=== PATIENT | female | born 1955 | race Caucasian/White ===

== ENCOUNTER 2018-08-17 09:15 | Emergency (ER) | payer MEDICARE ==
--- NOTE | 2018-08-17 09:48 | RADIOLOGY REPORT (SQ) ---
EXAM DESCRIPTION: CT HEAD WITHOUT COMPLETED DATE/TIME: 08/17/2018 9:26 am REASON FOR STUDY: mp stroke alert COMPARISON: None. TECHNIQUE: Axial images acquired through the brain without intravenous contrast. Images reviewed wi th bone, brain and subdural windows. Additional sagittal and coronal reconstructions were generated. Images stored on PACS. All CT scanners at this facility use dose modulation, iterative reconstruction, and/or weight based d osing when appropriate to reduce radiation dose to as low as reasonably achievable (ALARA). [facility]: Dose Right [facility]: CareDose [facility]: Dose Right [facility]: Teradose 4D [facility]: [employer] RADIATION DOSE: CT Rad equipment meets quality standard of care and radiation dose reduction techniq ues were employed. CTDIvol: 53.2 mGy. DLP: 1044 mGy-cm. mGy. LIMITATIONS: None. FINDINGS: VENTRICLES: Normal size and contour. CEREBRUM: Dense right MCA trifurcation, best shown on axial image 16. This is worrisome for acute cl ot. This finding was called to as a critical result, 0930 hours 08/17/2018. Right external capsule and base a ganglia are still discernible. No definite loss of garber-white diff erentiation over the right MCA distribution. No acute hemorrhage, mass effect, or midline shift. CEREBELLUM: No masses. No hemorrhage. No alteration of density. No evidence for acute infarction. EXTRAAXIAL SPACES: No fluid collections. No masses. ORBITS AND GLOBE: No intra- or extraconal masses. Normal contour of globe without masses. CALVARIUM: No fracture. PARANASAL SINUSES: No fluid or mucosal thickening. SOFT TISSUES: No mass or hematoma. OTHER: No other significant finding. IMPRESSION: Dense right middle cerebral artery trifurcation worrisome for acute clot. No acute brai n parenchymal changes. EVIDENCE OF ACUTE STROKE: Dense right middle cerebral artery sign, report called to the emergency mariaelena m attending physician as above COMMENT: Pertinent findings on the imaging study reported as a CRITICAL RESULT to DR GONZALEZ at09:30 on 08/17/2018. Category of Critical Result: CT code stroke, dense middle cerebral artery sign right-side Quality ID # [id number]: Final reports with documentation of one or more dose reduction techniques (e.g., Au tomated exposure control, adjustment of the mA and/or kV according to patient size, use of iterative reconstruction technique) TECHNICAL DOCUMENTATION: JOB ID: [id number] [employer]- All Rights Reserved Reading location - IP/workstation name: [email or web address]
--- NOTE | 2018-08-17 09:57 | ER Document Report ---
ED General - General Stated Complaint: WEAKNESS/NUMBNESS Time Seen by Provider: 08/17/18 09:43 - HPI Notes: Patient is a 62-year-old female who presents to the emergency department for evaluation as a stroke alert. She states she woke this morning, had absolutely no symptoms or problems. She woke, went to the kitchen. She states she stood up from the kitchen table to feed her cat, when she noted that she could not move her left side. She fell to the ground. She denies hitting her head. No loss of consciousness. No neck or back pain. She believes onset of the symptoms was about [phone]. She is never had anything similar to this in the past. Past Medical History - General Information source: Patient - Social History Smoking Status: Never Smoker Family History: COPD - Past Medical History Cardiac Medical History: Reports: Hx Hypercholesterolemia, Hx Hypertension Review of Systems - Review of Systems Constitutional: No symptoms reported EENT: No symptoms reported Cardiovascular: No symptoms reported Respiratory: No symptoms reported Gastrointestinal: No symptoms reported Genitourinary: No symptoms reported Musculoskeletal: No symptoms reported Skin: No symptoms reported Neurological/Psychological: See HPI Physical Exam - Notes Notes: Vital signs reviewed, please refer to chart. Head is normocephalic, atraumatic. Pupils equal round, reactive to light. Neck is supple without meningismus. Heart is regular rate and rhythm. Lungs are clear to auscultation bilaterally. Abdomen is soft, nontender, normoactive bowel sounds throughout. Extremities without cyanosis, clubbing. Posterior calves are nontender. Peripheral pulses are equal. Skin is warm and dry. Patient is awake, alert, oriented x3. Patient initially has dense left-sided facial droop, diminished sensation to sharp on the left face and left upper extremity. Mild dysarthria noted. The remainder of cranial nerves II through XII grossly intact without focal neurological deficits. Strength is plus 5 out of 5 right upper and right lower extremities. Patient has a flaccid paralysis on initial evaluation of the left upper extremity. She has mild motion against gravity on the left lower extremity. Is hyperreflexive on the left. Course - Re-evaluation Re-evalutation: 08/17/18 10:30 Patient presents to the emergency department for evaluation. She was called as a stroke alert. I did evaluate the patient at the ambulance bay door. At that time her NIH was an 8. She was sent directly to CT scan. I was contacted by Dr. Philip, who notified me of a dense right MCA lesion, consistent with clot. I went back into reevaluate the patient and discussed indications/contraindica tions for TPA. At that time physical exam was reperformed. Her NIH was down to 4. She had mild pronator drift, but 3 out of 5 strength on the left upper extremity, and 5 out of 5 on the left lower. Sensation had improved. Her droop was improved, now she only had mild nasolabial fold asymmetry. Given this information, I was not inclined to administer TPA. I spoke with Marlys Melgar, nurse practitioner on for allergy at [facility]. She excepted the patient. Accepting physician will be Maico Boyer. Patient was administered aspirin, will transfer for further evaluation and care. - Laboratory Result Diagrams: 08/17/18 09:48 08/17/18 09:48 Laboratory results interpreted by me: 08/17/18 08/17/18 09:44 09:48 RDW 14.6 H POC Glucose 186 H - Diagnostic Test Radiology reviewed: Reports reviewed Radiology results interpreted by me: 08/17/18 10:32 Chest X-Ray 08/17/18 09:16 IMPRESSION: NO ACUTE RADIOGRAPHIC FINDING IN THE CHEST. Head CT 08/17/18 09:16 IMPRESSION: Dense right middle cerebral artery trifurcation worrisome for acute clot. No acute brain parenchymal changes. EVIDENCE OF ACUTE STROKE: Dense right middle cerebral artery sign, report called to the emergency room attending physician as above - EKG Interpretation by Me Additional EKG results interpreted by me: 08/17/18 10:32 Sinus mechanism with a rate of 87 bpm. Left axis deviation. LAFB. Nonspecific ST changes, but no acute changes concerning for ischemia or infarction. No old studies available for comparison. Discharge - Discharge Clinical Impression: CVA (cerebral vascular accident) Qualifiers: CVA mechanism: thrombosis Precerebral and cerebral artery: middle cerebral artery Laterality of affected vessel: right Qualified Code(s): I63.311 - Cerebra l infarction due to thrombosis of right middle cerebral artery Disposition: [facility] Admitting Provider: Rosalind
--- NOTE | 2018-08-17 10:05 | RADIOLOGY REPORT (SQ) ---
EXAM DESCRIPTION: CHEST SINGLE VIEW COMPLETED DATE/TIME: 08/17/2018 9:27 am REASON FOR STUDY: mp stroke alert COMPARISON: None. EXAM PARAMETERS: NUMBER OF VIEWS: One view. TECHNIQUE: Single frontal radiographic view of the chest acquired. RADIATION DOSE: NA LIMITATIONS: None. FINDINGS: LUNGS AND PLEURA: No opacities, masses or pneumothorax. No pleural effusion. MEDIASTINUM AND HILAR STRUCTURES: No masses. Contour normal. HEART AND VASCULAR STRUCTURES: Heart normal in size. Normal vasculature. BONES: No acute findings. HARDWARE: None in the chest. OTHER: No other significant finding. IMPRESSION: NO ACUTE RADIOGRAPHIC FINDING IN THE CHEST. TECHNICAL DOCUMENTATION: JOB ID: [id number] [employer]- All Rights Reserved Reading location - IP/workstation name: [email or web address]
[2018-08-17] MEDS ORDERED: ASPIRIN 325 MG TABLET PO ONE (10:06)
[2018-08-17 10:11] LABS: ABSOLUTE BASOPHILS # (AUTO) 0.1 10^3/uL (0.0-0.2); ABSOLUTE EOSINOPHILS # (AUTO) 0.2 10^3/uL (0.0-0.6); ABSOLUTE LYMPHOCYTES (AUTO) 1.8 10^3/uL (0.5-4.7); ABSOLUTE MONOCYTES (AUTO) 0.5 10^3/uL (0.1-1.4); ABSOLUTE NEUT (AUTO) 6.5 10^3/uL (1.7-8.2); BASOPHILS % (AUTO) 1.1 % (0-2); HEMATOCRIT 39.2 % (36.0-47.0); HEMOGLOBIN 13.4 g/dL (12.0-15.5); LYMPHOCYTES % (AUTO) 19.8 % (13-45); MEAN CORPUSCULAR HGB CONC 34.1 g/dL (32.0-36.0); MEAN CORPUSCULAR VOLUME 85 fl (80-97); MONOCYTES % (AUTO) 5.1 % (3-13); PLATELET COUNT 344 10^3/uL (150-450); RED BLOOD COUNT 4.61 10^6/uL (3.72-5.28); RED CELL DISTRIBUTION WIDTH 14.6 % (11.5-14.0); TOTAL CELLS COUNTED % (AUTO) 100 %
[2018-08-17 10:12] LABS: INTERNATIONAL RATION (INR) 0.97
[2018-08-17 10:13] LABS: PARTIAL THROMBOPLASTIN TIME 26.8 SEC (23.5-35.8)
[2018-08-17 10:21] LABS: PROTHROMBIN TIME 12.9 SEC (11.4-15.4)
[2018-08-17 10:37] LABS: ALANINE AMINOTRANSFERASE 20 U/L (9-52); ALKALINE PHOSPHATASE 92 U/L (38-126); ANION GAP 10 (5-19); ASPARTATE AMINO TRANSFERASE 17 U/L (14-36); BILIRUBIN,DIRECT 0.3 mg/dL (0.0-0.4); BILIRUBIN,TOTAL 0.6 mg/dL (0.2-1.3); BLOOD UREA NITROGEN 22 mg/dL (7-20); CALCIUM 9.2 mg/dL (8.4-10.2); CARBON DIOXIDE 25 mmol/L (22-30); CHLORIDE 104 mmol/L (98-107); CREATINE KINASE 41 U/L (30-135); GLUCOSE 192 mg/dL (75-110); POTASSIUM 4.9 mmol/L (3.6-5.0); SODIUM 138.9 mmol/L (137-145); TOTAL PROTEIN 6.8 g/dL (6.3-8.2)
[2018-08-17 11:05] LABS: CREATINE KINASE MB < 0.22 ng/mL (<4.55); TROPONIN I < 0.012 ng/mL
[2018-08-17 11:09] VITALS: BP 146/81
--- NOTE | 2018-08-17 19:27 | EKG REPORT ---
SEVERITY:- ABNORMAL ECG - SINUS RHYTHM LEFT ANTERIOR FASCICULAR BLOCK : Confirmed by: Zulma Loera MD 17-Aug-2018 19:26:59
== END 2018-08-17 11:04 | disposition short-term general hospital (02) ==
LOC: EDBD → ER 09:15
DX: I63.311 Cerebral infarction due to thrombosis of right middle cerebral artery (principal); R47.1 Dysarthria and anarthria; R29.810 Facial weakness; G83.24 Monoplegia of upper limb affecting left nondominant side; R29.708 NIHSS score 8; I10 Essential (primary) hypertension; J44.9 Chronic obstructive pulmonary disease, unspecified; I44.4 Left anterior fascicular block
CPT/HCPCS: 93005; 99285; 36415; 82553; 82962; 82550; 85025; 85610; 85730; 80053; 84484; 71045; 70450; 93010; A9270